=== PATIENT | male | born 2000 | race Caucasian/White ===

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

== ENCOUNTER 2021-04-09 21:28 | Emergency (ER) | payer OTHER ==
[2021-04-09 22:28] LABS: HEMOGLOBIN 15.4 gm/dl (14.0-17.5); RED BLOOD COUNT 5.24 M/UL (4.20-5.50); WHITE BLOOD COUNT 11.2 K/UL (4.5-11.0)
[2021-04-09 22:52] LABS: BUN/CREATININE RATIO 13 (0-10)
== END 2021-04-10 | disposition home or self-care (01) ==
LOC: ER1 21:28
PROVIDERS: Emergency Medicine
DX: R51.9 Headache, unspecified (principal); I10 Essential (primary) hypertension
CPT/HCPCS: 70450; 80053; 82550; 82553; 83874; 84484; 85025; 93005; 99284

== ENCOUNTER 2021-05-19 01:10 | Emergency (ER) | payer OTHER ==
[2021-05-19] MEDS ORDERED: LODINE CAP 300300 MG PO (05:01)
[2021-05-19] MEDS ORDERED: NEO-SYNEPHRINE15 ML (05:01)
[2021-05-19] MEDS ORDERED: AUGMENTIN 875-1 EACH PO (05:01)
== END 2021-05-19 05:30 | disposition home or self-care (01) ==
LOC: ER1 01:10
DX: J01.00 Acute maxillary sinusitis, unspecified (principal); J32.0 Chronic maxillary sinusitis; I10 Essential (primary) hypertension; H66.91 Otitis media, unspecified, right ear; Z88.8 Allergy status to other drugs, medicaments and biological substances
CPT/HCPCS: 71046; 99283

== ENCOUNTER 2022-01-28 17:31 | Emergency (ER) | payer OTHER ==
[~2022-01-28 17:31] MED LIST: AUGMENTIN 875-1 EACH PO; LODINE CAP 300300 MG PO; NEO-SYNEPHRINE15 ML
[2022-01-28 18:40] LABS: HEMOGLOBIN 15.3 gm/dl (14.0-17.5); RED BLOOD COUNT 5.16 M/UL (4.20-5.50); WHITE BLOOD COUNT 8.3 K/UL (4.5-11.0)
[2022-01-28 19:17] LABS: BUN/CREATININE RATIO 9 (0-10)
== END 2022-01-28 21:00 | disposition home or self-care (01) ==
LOC: ER1 17:31
PROVIDERS: Preventive Medicine Occupational Medicine
DX: S13.9XXA Sprain of joints and ligaments of unspecified parts of neck, initial encounter (principal); I10 Essential (primary) hypertension; X58.XXXA Exposure to other specified factors, initial encounter
CPT/HCPCS: 0240U; 71045; 80053; 80307; 81001; 83690; 85025; 85652; 86140; 87086; 93005; 99284